=== PATIENT | female | born 1940 | race Caucasian/White ===

== ENCOUNTER 2019-09-13 11:19 | Observation (INO) | payer MEDICARE, OTHER ==
[~2019-09-13] VITALS: Ht 167.6 cm; Wt 78.8 kg
[2019-09-13] VITALS (11 sets, daily range): BP systolic 115–160; BP diastolic 54–80
[2019-09-13 12:28] LABS: BASOPHILS % (AUTO) 0.1 % (0-1); EOSINOPHILS % (AUTO) 0 % (0-6); HEMATOCRIT 43.1 % (35.0-45.0); HEMOGLOBIN 14.9 g/dl (12.0-16.0); LYMPHOCYTES # (AUTO) 0.6 X10'3 (1.1-4.8); MEAN CORPUSCULAR HEMOGLOBIN 31.4 PG (27.0-31.0); MEAN CORPUSCULAR HGB CONC 34.5 g/dL (33.0-36.5); MEAN CORPUSCULAR VOLUME 91.1 FL (78-98); MONOCYTES # (AUTO) 1.3 X10'3 (0-0.9); MONOCYTES % (AUTO) 8.9 % (2-12); NEUTROPHILS # (AUTO) 12.3 X10'3 (1.8-7.7); PLATELET COUNT 207 X10'3 (140-440); RED BLOOD COUNT 4.74 X10'6 (4.20-5.60); RED CELL DISTRIBUTION WIDTH 12.6 % (11.5-14.5); WHITE BLOOD COUNT 14.2 X10'3 (4.5-11.0)
[2019-09-13] MEDS ORDERED: ondansetron/PF 4mg/2ml inj IV ONE (12:35)
[2019-09-13] MEDS ORDERED: normal saline 1000ML IV soln IVB ONE (12:35)
[2019-09-13 12:38] LABS: ALANINE AMINOTRANSFERASE 25 U/L (12-78); ALKALINE PHOSPHATASE 36 IU/L (46-116); ANION GAP 6 (8-16); ASPARTATE AMINO TRANSFERASE 19 U/L (10-37); BILIRUBIN,TOTAL 0.7 MG/DL (0.1-1.0); BLOOD UREA NITROGEN 12 MG/DL (7-18); BUN/CREATININE RATIO 11.3 (6.6-38.0); CALCIUM 9.3 MG/DL (8.5-10.1); CHLORIDE 99 MMOL/L (99-107); CREATININE 1.06 MG/DL (0.40-0.90); GLUCOSE 166 MG/DL (70-104); LIPASE 79 U/L (73-393); POTASSIUM 4.1 MMOL/L (3.5-5.1); SODIUM 135 MMOL/L (135-145); TOTAL CARBON DIOXIDE 30.1 MMOL/L (24-32); TOTAL PROTEIN 8.2 G/DL (6.4-8.2); eGFR 50 ML/MIN
[2019-09-13 12:49] LABS: CLARITY,URINE CLOUDY (Clear); COLOR,URINE YELLOW (Yellow); GLUCOSE, URINE 100 mg/dl (Neg); KETONES,URINE NEGATIVE (Neg); LEUKOCYTE ESTERASE ,URINE NEGATIVE (Neg); NITRITES, URINE NEGATIVE (Neg); OCCULT BLOOD,URINE MODERATE (Neg); PROTEIN,URINE TRACE mg/dl (Neg); UA COLLECTION TYPE CLN CATCH MIDSTREAM; UROBILINOGEN,URINE 0.2 E.U/dL (0.2-1.0)
[2019-09-13 13:01] LABS: BACTERIA,URINE 1+ /HPF (Neg); COARSE GRANULAR CAST 0-3 /LPF (NEGATIVE); MUCUS STRANDS MANY /LPF (Neg); SQUAMOUS EPITHELIAL CELL,UR MANY /LPF (FEW)
[2019-09-13] MEDS ORDERED: LISI-600 PO (13:48)
[2019-09-13] MEDS ORDERED: LEVO100T PO (13:48)
[2019-09-13] MEDS ORDERED: METO-539 PO (13:48)
[2019-09-13] MEDS ORDERED: magnesium hydroxide 30ml (MOM) UD suspension PO PRN (14:10)
[2019-09-13] MEDS ORDERED: mag hydrox/Alum hydrox/simeth 30ml oral suspension PO PRN (14:10)
[2019-09-13] MEDS ORDERED: acetaminophen 325mg tablet PO PRN (14:10)
[2019-09-13] MEDS ORDERED: HYDROmorphone inj. 0.5 MG/0.5 ML DISP.SYRIN IV PRN (14:10)
[2019-09-13] MEDS ORDERED: ondansetron/PF 4mg/2ml inj IV PRN ×2 (14:10→17:50)
[2019-09-13] MEDS: normal saline 1000ml 1,000 ML IV SCH ×2 (14:33→20:49)
[2019-09-13] MEDS: metroNIDAZOLE-Flagyl 500mg/NS 100 ML IV SCH ×2 (16:49→23:10)
[2019-09-13] MEDS ORDERED: ringers solution, lacted 1,000 ML IV SCH (17:49)
[2019-09-13] MEDS ORDERED: meperidine/PF 25mg/ml syringe IV PRN ×3 (17:50)
[2019-09-13] MEDS ORDERED: proCHLORperazine 10 MG/2 ml inj IV PRN (17:50)
[2019-09-13] MEDS ORDERED: morphine 4 MG/ML inj SYRINge IV PRN ×2 (17:50)
[2019-09-13] MEDS ORDERED: metoprolol succinate 25mg (24-HOUR) SR. Tablet PO SCH (18:00)
[2019-09-13] MEDS ORDERED: BUPIVAcaine/PF 2.5 mg/ml (0.25%) 30ml vial ONE (18:13)
[2019-09-13] MEDS ORDERED: ceFOXitin 2 GM ADDVANTGE BAG 50 ML IV ONE (18:15)
--- NOTE | 2019-09-13 18:17 | NUR ---
Patient in room [facility]. I have received report from MARIO Mcgarry and had the opportunity to ask questions and assume patient care.
--- NOTE | 2019-09-13 18:21 | NUR ---
Problems reprioritized. Patient report given, questions answered & plan of care reviewed with soham morse.
[2019-09-13] MEDS ORDERED: desflurane 240ml liquid inh. IH ONE (18:39)
[2019-09-13] MEDS ORDERED: glycopyrrolate 0.2mg/ml inj ONE (18:39)
[2019-09-13] MEDS ORDERED: acetaminophen 1000 MG/100ml vial IV ONE (18:39)
[2019-09-13] MEDS ORDERED: sevoflurane 250ml liquid IH ONE (18:39)
[2019-09-13] MEDS ORDERED: dexamethasone sod phosphate 10mg/ml inj ONE (18:39)
[2019-09-13] MEDS ORDERED: ketorolac trometh. 30mg/ml inj. ONE (18:39)
[2019-09-13] MEDS ORDERED: neostigmine methylsulfate 1 MG/ML 10ml vial ONE (18:39)
[2019-09-13] MEDS ORDERED: fentaNYL/PF 50MCG/1 ML 2ML syringe ONE (18:40)
[2019-09-13] MEDS ORDERED: midazolam 2 mg/2 ml injection ONE (18:41)
[2019-09-13] MEDS ORDERED: rocuronium 10mg/ml inj IV ONE (18:42)
[2019-09-13] MEDS ORDERED: propofol inj 20 ML IV ONE (18:42)
[2019-09-13] MEDS ORDERED: LIDOcaine 2% (20mg/ml) 5ml vial ONE (18:42)
[2019-09-13] MEDS ORDERED: ondansetron/PF 4mg/2ml inj ONE (18:57)
[2019-09-13] MEDS ORDERED: metoprolol tartrate 1mg/ml inj IV ONE (19:10)
[2019-09-13] MEDS ORDERED: bacitracin 15gm ointment TP ONE (19:31)
--- NOTE | 2019-09-13 19:44 | NUR ---
Received from OR via SURGICAL BED , accompanied by Anesthesiologist MILAGROS and report given by Anesthesiolgist. PATIENT WITH 20G PIV IN RIGHT UE RUNNING LR AT 100. DENIES PAIN. PATIENT WITH 4 ABDOMINAL LAP SITES PRESENT. NO DRAINAGE PRESENT. SCDS DONNED. GLASSES IN LAP WITH PATIENT 10L MASK ON WITH 97% SATURATIONS. Addendum: 09/13/19 at 1950 by Rob Lance RN, RN Amended: Links added.
[2019-09-13] MEDS ORDERED: HYDROcodone/acetaminophen 10/325mg tab PO PRN ×2 (19:55)
--- NOTE | 2019-09-13 19:57 | NUR ---
Patient in room [facility]. I have received report from Rob kennel assistant and had the opportunity to ask questions and assume patient care.
--- NOTE | 2019-09-13 20:04 | NUR ---
ALL CRITERIA FOR TRANSFER TO THE FLOOR HAS BEEN ACHIEVED. VSS. BED LOW, CALL LIGHT AND VS. SET IN PLACE. RN PRESENT TO ACCEPT CARE. PATIENT RESTING COMFORTABLY IN BED. BELONGINGS SENT WITH PATIENT. DRESSINGS CDI. MARIO PAT PRESENT TO ACCEPT CARE OF THIS PATIENT. DENIES PAIN. TAKING ICE PO. VSS. TELE UNIT #4 ON. Addendum: 09/13/19 at 2007 by Rob Hendricks - MARIO AMRTIN Amended: Links added.
[2019-09-14] VITALS: BP 127/60
[2019-09-14 00:47] VITALS: BP 121/59
[2019-09-14] MEDS: normal saline 1000ml 1,000 ML IV SCH (04:18)
[2019-09-14 04:19] VITALS: BP 131/67
[2019-09-14 05:40] LABS: BASOPHILS % (AUTO) 0 % (0-1); EOSINOPHILS % (AUTO) 0 % (0-6); HEMATOCRIT 35.4 % (35.0-45.0); HEMOGLOBIN 12.2 g/dl (12.0-16.0); LYMPHOCYTES # (AUTO) 0.7 X10'3 (1.1-4.8); LYMPHOCYTES % (AUTO) 4.9 % (21-51); MEAN CORPUSCULAR HEMOGLOBIN 31.7 PG (27.0-31.0); MEAN CORPUSCULAR HGB CONC 34.5 g/dL (33.0-36.5); MEAN CORPUSCULAR VOLUME 91.8 FL (78-98); MEAN PLATELET VOLUME 9.4 FL (7.4-10.4); MONOCYTES # (AUTO) 0.9 X10'3 (0-0.9); MONOCYTES % (AUTO) 6.6 % (2-12); NEUTROPHILS # (AUTO) 12.6 X10'3 (1.8-7.7); NEUTROPHILS % (AUTO) 88.5 % (42-75); PLATELET COUNT 195 X10'3 (140-440); RED BLOOD COUNT 3.86 X10'6 (4.20-5.60); RED CELL DISTRIBUTION WIDTH 12.7 % (11.5-14.5); WHITE BLOOD COUNT 14.2 X10'3 (4.5-11.0)
[2019-09-14 05:48] LABS: ALBUMIN 2.8 G/DL (3.4-5.0); ANION GAP 6 (8-16); BLOOD UREA NITROGEN 12 MG/DL (7-18); BUN/CREATININE RATIO 10.7 (6.6-38.0); CALCIUM 8.1 MG/DL (8.5-10.1); CHLORIDE 103 MMOL/L (99-107); CREATININE 1.12 MG/DL (0.40-0.90); GLUCOSE 139 MG/DL (70-104); POTASSIUM 3.8 MMOL/L (3.5-5.1); SODIUM 135 MMOL/L (135-145); TOTAL CARBON DIOXIDE 26.3 MMOL/L (24-32); eGFR 47 ML/MIN
--- NOTE | 2019-09-14 06:10 | NUR ---
Problems reprioritized. Patient report given, questions answered & plan of care reviewed with Magalie He RN.
--- NOTE | 2019-09-14 06:41 | NUR ---
Patient in room [facility]. I have received report from MARIO Gonzalez and had the opportunity to ask questions and assume patient care.
[2019-09-14 07:00] VITALS: BP 110/61
[2019-09-14] MEDS ORDERED: levoTHYROXINE 100mcg tablet PO SCH (08:00)
[2019-09-14] MEDS ORDERED: levoFLOXACIN-Levaquin 500mg/D5 100 ML IV SCH (08:00)
[2019-09-14] MEDS ORDERED: lisinopril 20mg tablet PO SCH (08:00)
[2019-09-14 08:24] VITALS: BP_SYST 146
[2019-09-14] MEDS ORDERED: AMOX-422 PO (14:04)
[2019-09-14] MEDS ORDERED: HYDR-4383 PO (14:04)
--- NOTE | 2019-09-14 17:00 | NUR ---
PATIENT STABLE AND APPROPRIATE FOR DISCHARGE, EDUCATION GIVEN, IV TAKEN OUT, NORCO TRIPLICATE SEND WITH PATIENT, MEDS E-SCRIPTED TO PREFERRED PHARMACY, ALL BELONGINGS SENT WITH PATIENT, PATIENT TAKEN TO LOBBY IN WHEELCHAIR TO AN AWAITING CAR WHERE FAMILY MEMBER WILL TAKE PATIENT HOME
== END 2019-09-14 17:02 | disposition home or self-care (01) ==
LOC: ER 11:20 → ED HOLD 14:19 → SUR 3N 15:43
PROVIDERS: ADMIT Family Medicine; ATTEND Family Medicine
DX: K80.00 Calculus of gallbladder with acute cholecystitis without obstruction (principal); K82.A1 Gangrene of gallbladder in cholecystitis; I10 Essential (primary) hypertension; R10.9 Unspecified abdominal pain; E86.0 Dehydration; R11.2 Nausea with vomiting, unspecified; E89.0 Postprocedural hypothyroidism; R19.7 Diarrhea, unspecified; Z90.710 Acquired absence of both cervix and uterus; Z79.899 Other long term (current) drug therapy; Z88.2 Allergy status to sulfonamides; Z88.6 Allergy status to analgesic agent
CPT/HCPCS: 36415; 47562; 71045; 76700; 80048; 80053; 81001; 83690; 85025; 86885; 86900; 86901; 87081; 93005; 96361; 96365; 96366; 96375; 99284; G0378; J0131; J0694; J1100; J1885; J1956; J2001; J2250; J2405; J2704; J2710; J3010; J3490; J7030; J7120; 88304; A4215; A4618; A7000; J1170